=== PATIENT | male | born 1955 | race American Indian/Alaskan Native ===

== ENCOUNTER 2016-12-30 08:25 | Day surgery (SDC) | payer OTHER ==
[2016-12-30 09:36] LABS: Basophils % (Auto) 0.8 % (0.0-1.8); Eosinophils % (Auto) 1.2 % (0.0-4.3); Hematocrit 38.6 % (35.5-45.6); Hemoglobin 13.1 gm/dl (11.8-15.2); Mean Corpuscular HGB Conc 34 % (32-34); Mean Corpuscular Hemoglobin 29 pg (28-32); Mean Corpuscular Volume 85 fl (84-94); Platelet Count 245 K/mm3 (140-440); Red Blood Count 4.55 M/mm3 (3.65-5.03); Red Cell Distribution Width 12.7 % (13.2-15.2); White Blood Count 6.4 K/mm3 (4.5-11.0)
[2016-12-30 09:45] LABS: INR 1.09 (0.87-1.13)
[2016-12-30 09:49] LABS: Anion Gap 14 mmol/L; Blood Urea Nitrogen 10 mg/dL (9-20); Calcium 9.3 mg/dL (8.4-10.2); Carbon Dioxide 26 mmol/L (22-30); Chloride 99.8 mmol/L (98-107); Glucose 119 mg/dL (75-100); Potassium 4.1 mmol/L (3.6-5.0); Sodium 136 mmol/L (137-145)
[2016-12-30] MEDS ORDERED: NACL 0.9% 500 ML 500 ML IV SCH (10:00)
[2016-12-30] MEDS ORDERED: ECOTRIN PO ONE (10:00)
[2016-12-30] MEDS ORDERED: HEPARIN 10,000 UNITS/10 ML ONE (11:19)
[2016-12-30] MEDS ORDERED: CALAN ONE (11:19)
[2016-12-30] MEDS ORDERED: NITROGLYCERIN SYRINGE 3 ML ONE (11:19)
[2016-12-30] MEDS ORDERED: HEPARIN/NS 5000 UNIT/500ML(CATH LAB) 1,000 ML IR ONE (11:19)
[2016-12-30] MEDS ORDERED: VERSED ONE (11:20)
[2016-12-30] MEDS ORDERED: SUBLIMAZE ONE (11:20)
[2016-12-30] MEDS: XYLOCAINE 2% INFILTRATI ONE ×2 (11:32→12:08)
[2016-12-30] MEDS ORDERED: CATAPRES PO PRN (12:33)
[2016-12-30] MEDS ORDERED: NACL 0.9% 1000 ML 1,000 ML IV SCH (13:00)
[2016-12-30] MEDS ORDERED: NACL 0.9% 1000 ML 1,000 ML ONE (13:34)
[2016-12-30 17:13] VITALS: BP 157/72
--- NOTE | 2016-12-30 18:09 | Cardiac Catherization Report ---
INDICATION FOR PROCEDURE: Stable angina, [place] class III. REFERRING PHYSICIAN: Dr. Randi Bello. PROCEDURES PERFORMED: 1. Selective left and right coronary angiography. 2. Left ventriculography. DESCRIPTION OF PROCEDURE: After obtaining written consent, the patient was draped using sterile technique. A 2% lidocaine was injected into the right wrist. A 6-Gabonese vascular sheath was inserted into the right radial artery. A 6-[place]ones[place] JL4 catheter was used to selectively engage the left coronary artery. A 6-[place]ones[place] AR1, mod catheter was used to selectively engage the right coronary artery. A 6-Gabonese JR4 catheter was used to hand inject the left ventriculogram. No complications occurred during the procedure. Hemostasis was achieved at the end of the procedure using manual pressure. ESTIMATED BLOOD LOSS: Minimal. SPECIMEN REMOVED: None. FINDINGS: HEMODYNAMICS: The aortic pressure is 183/107. The LV systolic pressure was 178 mmHg. The left ventricular end-diastolic pressure was 24 mmHg. There was no significant gradient noted across the left ventricular outflow tract. CARDIAC STRUCTURES: Left ventricle is normal in size. The left ventricular ejection fraction is estimated at 50%. CORONARY ANATOMY: 1. This is a right dominant circulation. 2. The left main is a short vessel. There is evidence of 20% distal left main disease. 3. The left anterior descending artery is diffusely calcified especially in the proximal and mid segment. There is a tubular long stenosis extending from the ostium of the LAD with approximately 50-60% luminal compromise. There is a tubular stenosis of the mid LAD with 80% luminal compromise. 4. The ramus intermedius is a large caliber vessel with minimal luminal irregularities. 5. The left circumflex artery has evidence of an ostial and proximal 50-60% tubular stenosis extending from the ostium into the proximal segment. The left circumflex artery is a small caliber vessel. 6. The right coronary artery is a dominant vessel. There is evidence of a focal 90% stenosis of the proximal right coronary artery followed by a 70% proximal to mid stenosis. The PLVB and PDA have minimal luminal irregularities. IMPRESSION: 1. Multivessel disease with a 50-60% proximal LAD, 80% mid LAD, 50-60% proximal circumflex, sequential 90 and 70% lesions of the proximal and mid right coronary artery. 2. Left ventricular ejection fraction is measured at 50%. 3. LVEDP is measured at 24 mmHg. RECOMMENDATIONS: The patient's coronary angiograms will be reviewed and recommendations regarding either bypass surgery or multivessel PCI would be formulated after careful review. JOB# [id number] MARY/JENSEN
== END 2016-12-30 18:10 | disposition critical access hospital (66) ==
LOC: CATHLABREC 08:25
PROVIDERS: ATTEND Internal Medicine
DX: I25.119 Atherosclerotic heart disease of native coronary artery with unspecified angina pectoris (principal); I10 Essential (primary) hypertension; E66.9 Obesity, unspecified; Z68.41 Body mass index [BMI] 40.0-44.9, adult; Z79.82 Long term (current) use of aspirin; Z79.899 Other long term (current) drug therapy; Z72.89 Other problems related to lifestyle; Z87.891 Personal history of nicotine dependence; Z82.49 Family history of ischemic heart disease and other diseases of the circulatory system
CPT/HCPCS: 36415; 80048; 85025; 85610; 85730; 93005; 93010; 93458; C1894; J1644; J2250; J3010; J7030; J7040; Q9967